=== PATIENT | female | born 1980 | race Caucasian/White ===

== ENCOUNTER 2021-08-18 10:00 | Emergency (ER) | payer SELFPAY ==
[~2021-08-18] VITALS: Ht 170.2 cm; Wt 135.2 kg
[~2021-08-18 10:00] MED LIST: ALPR0.5T PO; BUTA-234 PO; CYCL10TA9 PO; DOCU-161 PO; FLUO40CA PO; NFPRILOC40 PO
--- NOTE | 2021-08-18 10:43 | ED EENT ---
History of Present Illness General Chief Complaint: Head/Cervical Problems Stated Complaint: EYE / HEAD PAIN Nursing Triage Note: PT AMB TO [facility] 5 WITH COMPLAINT OF EYE PAIN THAT STARTED FRIDAY AND HEADACHE THAT STARTED LAST NIGHT. STATES WAS GIVEN EYE DROPS ON FRIDAY BY PCP. WAS SENT HERE BY [facility] Source: patient, family ([email or web address]) Exam Limitations: no limitations History of Present Illness Date Seen by Provider: Aug 18, 2021 Time Seen by Provider: 10:28 Initial Comments Patient is a 40-year-old female who presents to the emergency department with a chief complaint of left eye pain that started last Friday, she was seen by her primary care physician and started on some eyedrops. Yesterday she started having a left-sided headache that she describes as severe. No nausea or vomiting. No visual changes. No fevers reported. She has significant eye pain in the left eye when looking laterally. She denies history of similar symptoms in the past. No trauma to the eye. No recent issues with allergies, congestion. She has chronic left ear discomfort. She is not really taking much for the headache. No allergies to medications. History of depression on medications for this. Not a diabetic. No rashes reported. No other complaints of chest pain, shortness of breath, abdominal pain or complaints. All other review of systems reviewed and negative except as stated. Timing/Duration: gradual Location: eye (L) Prearrival Treatment: prescription meds (Eyedrops) Associated Symptoms: other (Eye pain) Allergies and Home Medications Allergies Coded Allergies: No Known Drug Allergies (Unverified , 11/17/14) Patient Home Medication List Home Medication List Reviewed: Yes Alprazolam (Xanax) 0.5 Mg Tablet, 0.5 MG PO DAILY, (Reported) Entered as Reported by: CAROLYNE CALVILLO on 11/17/14 1249 Butalb/Acetaminophen/Caffeine (Dtyfhe-Swip-Fbkp 50-325-40 Tab) 1 Each Tablet, 1 EACH PO Q6HR PRN PRN for HEADACHE, (Reported) Entered as Reported by: CAROLYNE CALVILLO on 11/17/14 1249 Ciprofloxacin HCl (Ciloxan) 0.3 % Oint...g., 3.5 GM OP BID Prescribed by: LAVONNE LEROY on 08/18/21 1227 Cyclobenzaprine Hcl (Cyclobenzaprine Hcl) 10 Mg Tablet, 1 EACH PO DAILY, (Reported) Entered as Reported by: CAROLYNE CALVILLO on 11/17/14 124 Docusate Sodium (Docusate Sodium) 100 Mg Capsule, 100 MG PO DAILY, (Reported) Entered as Reported by: CAROLYNE CALVILLO on 11/17/14 124 Fluoxetine Hcl (Fluoxetine Hcl) 40 Mg Capsule, 1 EACH PO DAILY, (Reported) Entered as Reported by: CAROLYNE CALVILLO on 11/17/14 124 Omeprazole (Prilosec) 40 Mg Capsule.dr, 40 MG PO DAILY, (Reported) Entered as Reported by: CAROLYNE CALVILLO on 11/17/14 1249 Review of Systems Review of Systems Constitutional: see HPI Eyes: Inflammation (Swelling), Pain Ears: Pain (Left) Nose: no symptoms reported Mouth: no symptoms reported Throat: no symptoms reported Respiratory: no symptoms reported Musculoskeletal: no symptoms reported Skin: other (Swelling to the left eye) Neurological: Headache Past Hhnkqtz-Ldotyn-Zrpgiv Hx Patient Social History Tobacco Use?: No Use of E-Cig and/or Vaping dev: No Substance use?: No Alcohol Use?: No Pt feels they are or have been: No Physical Exam Vital Signs Vital Signs - First Documented 08/18/21 10:07 Temp 36.5 Pulse 87 Resp 18 B/P (MAP) 135/94 (108) Pulse Ox 99 O2 Delivery Room Air Height, Weight, BMI Height: 5'7.00" Weight: 215lbs. oz. 97.490697nc; 46.00 BMI Method: General Appearance: WD/WN, no apparent distress Eyes: left eye conjunctival inflammation (Slight conjunctival injection of the left eye), left eye lid inflammation (Lower lid is significantly swollen); bilateral eye PERRL, bilateral eye EOMI (Pain with lateral gaze in left eye only) Ears: left ear TM dull, left ear TM perforation Nose: normal inspection Mouth/Throat: normal mouth inspection, pharynx normal Neck: non-tender, full range of motion, supple, normal inspection Cardiovascular: regular rate, rhythm Respiratory: chest non-tender, lungs clear, normal breath sounds, no respiratory distress, no accessory muscle use Gastrointestinal: normal bowel sounds, non tender, soft Neurologic/Psychiatric: alert, oriented x 3, depressed affect Skin: normal color, warm/dry, other (No temporal artery tenderness. No lesions to the scalp or face are noted. No lesions in the left ear.) Progress/Results/Core Measures Results/Orders Lab Results Laboratory Tests Test 08/18/21 10:50 Range/Units White Blood Count 9.1 4.3-11.0 10^3/uL Red Blood Count 4.71 3.80-5.11 10^6/uL Hemoglobin 14.0 11.5-16.0 g/dL Hematocrit 42 35-52 % Mean Corpuscular Volume 89 80-99 fL Mean Corpuscular Hemoglobin 30 25-34 pg Mean Corpuscular Hemoglobin Concent 34 32-36 g/dL Red Cell Distribution Width 12.8 10.0-14.5 % Platelet Count 232 130-400 10^3/uL Mean Platelet Volume 9.7 9.0-12.2 fL Immature Granulocyte % (Auto) 1 % Neutrophils (%) (Auto) 71 42-75 % Lymphocytes (%) (Auto) 19 12-44 % Monocytes (%) (Auto) 6 0-12 % Eosinophils (%) (Auto) 2 0-10 % Basophils (%) (Auto) 1 0-10 % Neutrophils # (Auto) 6.5 1.8-7.8 10^3/uL Lymphocytes # (Auto) 1.7 1.0-4.0 10^3/uL Monocytes # (Auto) 0.5 0.0-1.0 10^3/uL Eosinophils # (Auto) 0.2 0.0-0.3 10^3/uL Basophils # (Auto) 0.1 0.0-0.1 10^3/uL Immature Granulocyte # (Auto) 0.1 0.0-0.1 10^3/uL Sodium Level 137 135-145 MMOL/L Potassium Level 4.1 3.6-5.0 MMOL/L Chloride Level 104 98-107 MMOL/L Carbon Dioxide Level 19 L 21-32 MMOL/L Anion Gap 14 5-14 MMOL/L Blood Urea Nitrogen 9 7-18 MG/DL Creatinine 0.88 0.60-1.30 MG/DL Estimat Glomerular Filtration Rate 85 BUN/Creatinine Ratio 10 Glucose Level 108 H 70-105 MG/DL Calcium Level 9.1 8.5-10.1 MG/DL My Orders Orders - LAVONNE LEROY MD Ed Iv/Invasive Line Start (08/18/21 10:41) Cbc With Automated Diff (08/18/21 10:41) Basic Metabolic Panel (08/18/21 10:41) Ketorolac Injection (Toradol Injection) (08/18/21 10:45) Diphenhydramine Injection (Benadryl Inje (08/18/21 10:45) Prochlorperazine Injection (Compazine In (08/18/21 10:45) Tetracaine 0.5% Ophth Lata Sdv (Tetracai (08/18/21 10:45) Fluorescein Strips (Eedrn-P-Mvxovm) (08/18/21 10:45) Balanced Salt Irrigation Soln (Bss Irrig (08/18/21 10:45) Medications Given in ED Current Medications Medications Dose Ordered Sig/Jax Route Start Time Stop Time Status Last Admin Dose Admin Balanced Salt Solution 15 ml ONCE ONCE IR 08/18/21 10:45 08/18/21 10:46 DC 08/18/21 10:54 15 ML Diphenhydramine HCl 25 mg ONCE ONCE IV 08/18/21 10:45 08/18/21 10:46 DC 08/18/21 10:56 25 MG Fluorescein Sodium 1 mg ONCE ONCE OU 08/18/21 10:45 08/18/21 10:46 DC 08/18/21 10:54 1 MG Ketorolac Tromethamine 15 mg ONCE ONCE IVP 08/18/21 10:45 08/18/21 10:46 DC 08/18/21 10:55 15 MG Prochlorperazine Edisylate 5 mg ONCE ONCE IV 08/18/21 10:45 08/18/21 10:46 DC 08/18/21 10:56 5 MG Tetracaine HCl 4 ml ONCE ONCE OU 08/18/21 10:45 08/18/21 10:46 DC 08/18/21 10:54 4 ML Vital Signs/I&O 08/18/21 10:07 Temp 36.5 Pulse 87 Resp 18 B/P (MAP) 135/94 (108) Pulse Ox 99 O2 Delivery Room Air Blood Pressure Mean: 108 Progress Progress Note : Time: 12:23 Progress Note Patient has pretty significant left lower lid swelling with slight injection of the conjunctive on the left eye. Pressures are obtained and are 18, 19, 22. She received Toradol Compazine and Benadryl for her headache. She had complete relief of her headache. She also had complete relief of the eye pain when looking to the left. Slit-lamp exam revealed no obvious pathology. No foreign body, no fluorescein dye uptake noted. Basic labs were obtained and also reviewed, completely normal. I have low suspicion for orbital cellulitis/preseptal cellulitis. The swelling is not erythematous. Not significantly tender. She has no fever. I recommended follow-up with ophthalmology on Friday and will give contact information for same. We will change her eyedrop over the course of the next 5 days. She has previously been on gentamicin eyedrops. Return precautions discussed, if she develops fever, worsening swelling, redness, headache or rash to come back to the emergency department. Both he and her verbalized understanding of the plan of care and are agreeable. All questions are sought and answered. Departure Impression Primary Impression: Conjunctivitis Qualified Codes: H10.502 - Unspecified blepharoconjunctivitis, left eye Additional Impressions: Swelling of lower eyelid Headache Qualified Codes: R51.9 - Headache, unspecified Disposition: 01 HOME, SELF-CARE Condition: Improved Departure-Patient Inst. Decision time for Depature: 12:25 Referrals: [facility] [place] Primary Care Physician LOBITO CARRERO (Family) Primary Care Physician MICHELLE CARDOZA OD Patient Instructions: Headache, Adult (DC), Conjunctivitis (Noninfectious Pinkeye) (DC) Add. Discharge Instructions: Continue to use antibiotics over the course of the next 5 days apply a small ribbon of ointment to the lower eyelid twice daily. Use ibuf-pey-rfptvrj ibuprofen, 3 tablets which is 600 mg every 6 hours with food as needed for headache/eye pain. Cool compresses to the left eye may lessen swelling and help with discomfort also. If you develop a fever over 101, worsening eye pain, drainage increasing redness around the eye or any other concerning symptoms please come back to the emergenc y room for reevaluation. I have put contact information for Dr. Cardoza's eye clinic on your paperwork. Please call Friday morning for a follow-up appointment next week. Scripts Ciprofloxacin HCl (Ciloxan) 0.3 % Oint...g. 3.5 GM OP BID for 5 Days, #1 EA apply to left eye Prov: LAVONNE LEROY MD 08/18/21 Copy Copies To 1: MICHELLE CARDOZA OD, KATHRYN M MD Aug 18, 2021 10:43
[2021-08-18] MEDS ORDERED: KETOROLAC 30 MG/ML VIAL IVP ONE (10:45)
[2021-08-18] MEDS ORDERED: FLUORESCEIN (FLUOR-I-STRIPS) 1 MG STRP OU ONE (10:45)
[2021-08-18] MEDS ORDERED: TETRACAINE 0.5% OPHTH SOLN 4 ML BTL (SINGLE DOSE ONLY) OU ONE (10:45)
[2021-08-18] MEDS ORDERED: PROCHLORPERAZINE 10 MG/2ML INJ (COMPAZINE) IV ONE (10:45)
[2021-08-18] MEDS ORDERED: diphenhydrAMINE 50 MG/ML INJ (BENADRYL) IV ONE (10:45)
[2021-08-18] MEDS ORDERED: BSS 15 ML IR ONE (10:45)
[2021-08-18 10:55] LABS: BASOPHILS # (AUTO) 0.1 10^3/uL (0.0-0.1); BASOPHILS % (AUTO) 1 % (0-10); EOSINOPHILS # (AUTO) 0.2 10^3/uL (0.0-0.3); EOSINOPHILS % (AUTO) 2 % (0-10); HEMATOCRIT 42 % (35-52); LYMPHOCYTES # (AUTO) 1.7 10^3/uL (1.0-4.0); LYMPHOCYTES % (AUTO) 19 % (12-44); MEAN CORPUSCULAR HEMOGLOBIN 30 pg (25-34); MEAN CORPUSCULAR HGB CONC 34 g/dL (32-36); MEAN CORPUSCULAR VOLUME 89 fL (80-99); MEAN PLATELET VOLUME 9.7 fL (9.0-12.2); MONOCYTES # (AUTO) 0.5 10^3/uL (0.0-1.0); MONOCYTES % (AUTO) 6 % (0-12); NEUTROPHILS # (AUTO) 6.5 10^3/uL (1.8-7.8); NEUTROPHILS % (AUTO) 71 % (42-75); PLATELET COUNT 232 10^3/uL (130-400); WHITE BLOOD COUNT 9.1 10^3/uL (4.3-11.0)
[2021-08-18 11:07] LABS: POTASSIUM 4.1 MMOL/L (3.6-5.0)
[2021-08-18 11:08] LABS: CALCIUM 9.1 MG/DL (8.5-10.1)
[2021-08-18 11:13] LABS: CREATININE SERUM 0.88 MG/DL (0.60-1.30)
[2021-08-18] MEDS ORDERED: CIPR3.5O OP (12:27)
[2021-08-18 12:48] VITALS: BP 135/94
== END 2021-08-18 12:48 | disposition home or self-care (01) ==
LOC: EDUNIT# 10:00 → ER 10:01
DX: H10.502 Unspecified blepharoconjunctivitis, left eye (principal); R51.9 Headache, unspecified; F32.A Depression, unspecified; Z79.899 Other long term (current) drug therapy
CPT/HCPCS: 36415; 80048; 85025